=== PATIENT | male | born 2000 ===

== ENCOUNTER 2025-02-19 09:00 | Day surgery (SDC) | payer OTHER ==
[2025-02-17 13:24] LABS: URINE APPEARANCE Clear; URINE BILIRRUBIN Negative (NEGATIVE); URINE BLOOD Negative; URINE COLOR Yellow; URINE GLUCOSE Negative (NEGATIVE); URINE KETONE Negative (NEGATIVE); URINE LEUKOCYTE Negative; URINE NITRATE Negative; URINE PROTEIN Negative (NEGATIVE); URINE UROBILINOGEN 0.2 E.U./dl
[2025-02-17 13:27] LABS: BASO % 0.7 % (0.1-1.2); EOS # 0.07 (0.04-0.54); EOS % 1.6 % (0.7-7.0); LYMPH # 1.76 (1.18-3.74); LYMPH % 39.8 % (19.3-53.1); MEAN PLATELET VOLUME 11.00 fl (9.4-12.4); MONO # 0.38 (0.24-0.82); MONO % 8.6 % (4.7-12.5); NEUT # 2.17 (1.56-6.13); NEUT % 49.1 % (34.0-71.1); RED CELL DISTRIBUTION WIDTH 12.3 % (11.6-14.4)
[2025-02-17 13:28] LABS: URINE BACTERIA 8.3 uL (0.0-1933); URINE RBC 2.3 uL (0.0-20.8)
[2025-02-17 13:38] LABS: URINE CAST 0.00 uL (0.0-1.40); URINE EPITHELIAL CELLS 0.4 uL (0.0-38.8); URINE WBC 1.6 uL (0.0-23.2)
[2025-02-17 14:19] LABS: INR 1.0
[2025-02-17 14:22] LABS: ALT/SGPT 38.0 U/L (12-78); AST/SGOT 18.0 U/L (15-37); BILIRUBIN TOTAL 0.57 mg/dL (0.3-1.2); BUN CREA RATIO 15.0 (7.0-25.0); CREATININE SERUM 0.84 mg/dL (0.70-1.30); GFR 110.45; GLOBULINA 3.2 G/DL (2.4-3.5); GLUCOSE FASTING 92.0 mg/dL (65-100); OSMOLALITY SERUM 281.0 MOSM/KG (275-295)
[~2025-02-19] VITALS: Ht 176.5 cm; Wt 70.8 kg
[2025-02-19] MEDS ORDERED: CEFAZOLIN SODIUM 1,000 MG VIAL ONE (10:13)
== END 2025-02-19 15:10 | disposition home or self-care (01) ==
LOC: O/R 09:00 → CIR.AMB 09:00 → SURH 09:00 → EDSTATUS 09:45 → SURH 11:15 → O/R 15:10 → CIR.AMB 15:10
PROVIDERS: ATTEND Surgery
DX: K42.0 Umbilical hernia with obstruction, without gangrene (principal)
CPT/HCPCS: 49594; C1781